=== PATIENT | female | born 2005 | race Caucasian/White ===

== ENCOUNTER 2023-11-11 10:07 | Emergency (ER) | payer OTHER ==
--- NOTE | 2023-11-11 11:39 | ED Physician Documentation ---
PD HPI UPPER EXT INJURY - Stated complaint Stated Complaint: RT HAND PX POST SURG - Chief complaint Chief Complaint: Ext Problem - Additonal information Additional information: 18-year-old female presents emergency department for right wrist pain. Patient says that she originally had a wrist laceration that was self-inflicted on 10 October she was life flighted to what sounds like [facility] where she had a plastic surgeon repair her right wrist lack. It is at the palmar aspect of her wrist. She had a follow-up appointment with hand surgeon on the and appears to be healing well. Patient says that she is concerned that she may not be getting proper pain relief and control with the current medication regimen that she is on if she is feeling some nerve pain at the tip of her finger and some intermittent nerve pain to the palm aspect of her hand. No fevers or chills no drainage coming from the incision no erythema or redness or signs or symptoms of infection. PD PAST MEDICAL HISTORY - Past Medical History Past Medical History: No - Past Surgical History Past Surgical History: Yes - Present Medications Home Medications: Ambulatory Orders Medication Instructions Recorded Confirmed Acetaminophen [Tylenol] 650 mg PO Q6H PRN 11/11/23 11/11/23 Gabapentin [Neurontin] 600 mg PO TID 11/11/23 11/11/23 Ibuprofen [Motrin] 600 mg PO TID 11/11/23 11/11/23 valACYclovir [Valtrex] 2,000 mg PO BID 1 Days #8 tablet 11/11/23 - Allergies Allergies/Adverse Reactions: Allergies Allergy/AdvReac Type Severity Reaction Status Date / Time No Known Drug Allergies Allergy Verified 11/11/23 10:28 - Social History Does the pt smoke?: No Smoking Status: Never smoker Does the pt drink ETOH?: No Does the pt have substance abuse?: No - Immunizations Immunizations are current?: Yes PD ED PE NORMAL - Vitals Vital signs reviewed: Yes - General General: Alert and oriented X 3, No acute distress, Well developed/nourished - Derm Derm: Other (right wrist palmar aspect laceration, wound well approximated, no erythema or purulent drainage) - Extremities Extremities: Other (right wrist splint on) - Psych Psych: Normal mood, Normal affect Results - Vitals Vitals: Vital Signs - 24 hr 11/11/23 11/11/23 10:24 12:03 Temperature 36.3 C L Heart Rate 58 L 74 Respiratory 16 15 Rate Blood Pressure 130/78 137/95 H O2 Saturation 98 100 Oxygen O2 Source Room air PD Medical Decision Making - ED course ED course: 18-year-old female presents emergency department for evaluation of her right wrist. Patient said thatShe feels like she is having a hard time with her pain at home she is currently taking 600 mg of gabapentin 3 times a day and is still feeling some nerve pain to the tips of her fingers into the palm of her hand. I told patient that she is on the best medication and she is being followed by an amazing surgeon and at this point in time surgeons would prefer if we did not adjust the pain medication regimen as this is something that they like to manage. Patient was quite understanding of this and agreed with this. She was told to try her ice or heat to help with the nerve pain when she is feeling flares of it. Patient says she does not feel ready to go back to work at was hoping for a note for couple more days off which I still try to be more than happy to give her. I did give her a note and told her to follow-up with her surgeon if she needs extended time from the time that I gave her. Given that her laceration was intentional I asked her if she has been feeling she is that she is overall doing well no suicidal or homicidal thoughts at this point in time is feeling emotionally stable. Patient also asked for medication for antiviral as she had a new cold sore on the bottom of her left lip she was given a prescription of valacyclovir and was also given signs symptoms to return to the emergency department. Her laceration appears to be well-approximated there is no signs or symptoms of infection and I do not believe adjusting any of the medications that she is on is warranted and patient kindly agrees. All questions have been answered safe for discharge Departure - Departure Disposition: 01 Home, Self Care Clinical Impression: Oral herpes simplex infection, Nerve pain Instructions: TENS Prescriptions: valACYclovir [Valtrex] 2,000 mg PO BID 1 Days #8 tablet Comments: Thank for trusting us with your care. As we discussed I unfortunately cannot change your pain medication regimen from your hand surgeons regimen that she currently has you on. Your wound does not appear to be infected or have any other concerning symptoms that make me think that we need to do further workup at this point in time. Please follow-up with your hand surgeon about managing your pain medications at home but as we discussed is just going to take a long time for this type of injury to heal. I have prescribed you a medication called valacyclovir for your cold sore on your left you will take 2000 mg when you first receive the dose and then the next 2000 mg again in 12 hours. Please help with your primary care provider as needed and continue with your topical Abreva. Forms: PCP List Discharge Date/Time: 11/11/23 12:04
[2023-11-11 12:13] VITALS: BP 137/95; O2SAT 100
== END 2023-11-11 12:04 | disposition home or self-care (01) ==
LOC: ED 10:07
DX: B00.9 Herpesviral infection, unspecified (principal); M79.2 Neuralgia and neuritis, unspecified; Z79.899 Other long term (current) drug therapy
CPT/HCPCS: 99283